=== PATIENT | female | born 1945 | race Caucasian/White ===

== ENCOUNTER 2019-09-07 07:35 | Outpatient (CLI) | payer MEDICARE, OTHER, SELFPAY ==
--- NOTE | 2019-09-07 08:00 | USCV_ITS ---
MejiasYulia Age: 73 Gender: F : 1945 Exam Date: 09/07/2019 07:58 Ordering Phys: Jackelin Stallings Technologist: Aga Hassan Exam Location[place] [facility] [place] Indication: HEART FAILURE BP: 150 / 70 HR: 65 Rhythm: Sinus Technical Quality: Good MEASUREMENTS (Male / Female) Normal Values 2D ECHO LV Diastolic Diameter PLAX 5.1 cm 4.2 - 5.9 / 3.9 - 5.3 cm LV Systolic Diameter PLAX 3.3 cm LV Chamber Size 4.7 cm IVS Diastolic Thickness 1.1 cm 0.6 - 1.0 / 0.6 - 0.9 cm IVS Systolic Thickness 1.2 cm LVPW Diastolic Thickness 0.5 cm 0.6 - 1.0 / 0.6 - 0.9 cm LVPW Systolic Thickness 1.1 cm RV Chamber Size 3.0 cm LVOT Diameter 2.0 cm LV Ejection Fraction 2D Teich 64.5 % LV Ejection Fraction MOD 2C 29.1 % LV Ejection Fraction 2C AL 27.3 % LA Diameter 3.6 cm LA Width 4.0 cm LA Height 4.6 cm RA Width 3.1 cm RA Height 4.8 cm M-MODE LV Diastolic Diameter MM 5.8 cm 4.2 - 5.9 / 3.9 - 5.3 cm LV Systolic Diameter MM 4.1 cm LV Ejection Fraction MM Teich 55.1 % IVS Diastolic Thickness MM 0.8 cm 0.6 - 1.0 / 0.6 - 0.9 cm IVS Systolic Thickness MM 1.3 cm LVPW Diastolic Thickness MM 1.3 cm 0.6 - 1.0 / 0.6 - 0.9 cm LVPW Systolic Thickness MM 1.4 cm Aortic Annulus Diameter 3.2 cm LA Ao Ratio MM 1.1 MV E Point Septal Separation 1.0 cm DOPPLER AV Peak Velocity 126.0 cm/s LVOT Peak Velocity 109.0 cm/s AV Area Cont Eq vti 2.4 cm squared AV Area Cont Eq pk 2.7 cm squared MV Area PHT 2.5 cm squared Mitral E to A Ratio 1.0 MV E' Velocity 6.0 cm/s Mitral E to MV E' Ratio 11.8 Mitral E to LV E' Lateral Ratio 13.8 Mitral E to LV E' Septal Ratio 10.3 TR Peak Velocity 311.9 cm/s TR Peak Gradient 38.9 mmHg TR Mean Velocity 221.9 cm/s TR Mean Gradient 22.5 mmHg TR Velocity Time Integral 109.1 cm TV Peak E Velocity 64.0 cm/s Right Atrial Pressure 3.0 mmHg Pulmonary Artery Systolic Pressu 41.9 mmHg PV Peak Velocity 53.0 cm/s FINDINGS Left Ventricle Normal left ventricular cavity size. Normal left ventricular wall thickness. Mildly decreased left ventricular systolic function. Regional wall motion abnormalities (see diagram). Grade I/IV diastolic dysfunction (abnormal relaxation filling pattern), normal to mildly elevated filling pressures. Left ventricular ejection fraction is estimated at 45-50 %. There appears to be distal anteroapical and apical hypokinesis to a very mild degree. Right Ventricle Normal right ventricular size and systolic function. Mild pulmonary hypertension, RVSP 41.9 mmHg. Right Atrium The right atrium is normal in size. Left Atrium Mildly increased left atrial size. Mitral Valve Structurally normal mitral valve. Trace mitral valve regurgitation. Aortic Valve Structurally normal trileaflet aortic valve. No aortic valve stenosis. Mild aortic valve regurgitation. Tricuspid Valve Structurally normal tricuspid valve. Moderate tricuspid valve regurgitation. Pulmonic Valve Pulmonic valve not well visualized. Pericardium Normal pericardium without effusion. Aorta Normal ascending aorta dimension. CONCLUSIONS Normal left ventricular cavity size. Normal left ventricular wall thickness. Mildly decreased left ventricular systolic function. Regional wall motion abnormalities (see diagram). Grade I/IV diastolic dysfunction (abnormal relaxation filling pattern), normal to mildly elevated filling pressures. Left ventricular ejection fraction is estimated at 45-50 %. There appears to be distal anteroapical and apical hypokinesis to a very mild degree. Normal right ventricular size and systolic function. Mild pulmonary hypertension, RVSP 41.9 mmHg. Mildly increased left atrial size. Structurally normal mitral valve. Trace mitral valve regurgitation. Structurally normal trileaflet aortic valve. No aortic valve stenosis. Mild aortic valve regurgitation. Previous study done only 3 months ago. There has been no change. Dr. Cristóbal Pillai MD (Electronically Signed) Final Date: 07 September 2019 17:16 S
== END 2019-09-07 07:36 | disposition home or self-care (01) ==
LOC: RAD 07:37
PROVIDERS: Family Provider Family Medicine; PCP Family Medicine; Visit Provider Nurse Practitioner Family
DX: I50.1 Left ventricular failure, unspecified (principal); I27.20 Pulmonary hypertension, unspecified; I08.1 Rheumatic disorders of both mitral and tricuspid valves
CPT/HCPCS: 93306

== ENCOUNTER 2020-04-20 09:26 | Emergency (ER) | payer MEDICARE, OTHER, SELFPAY ==
[2020-04-20] VITALS (8 sets, daily range): BP systolic 117–166; BP diastolic 55–80; PULSE 47–61; RESP 15–22; TEMP 36.6; O2SAT 94–100; BMI 22.7
--- NOTE | 2020-04-20 09:53 | XR_ITS ---
WS: [id number] Portable AP upright chest, 04/20/2020 Clinical Data: chest pain Comparison: PA and lateral chest, 08/15/2019. Findings: No nodules, masses or effusions are seen. The heart is normal. The pulmonary vascularity is not increased. No pneumonia or pneumothorax is seen. The aortic arch and descending aorta show calci fication and tortuosity. Monitor leads are on the chest wall. XR/XR chest 1V portable [id number] Impression: Atherosclerosis.
--- NOTE | 2020-04-20 09:53 | ECG_ITS ---
[facility] Test Date: 2020-04-20 Pat Name: Yulia Mejias Department: Room: Gender: Female Tie Sawyer: : 1945 Requested By: Carson Shay Order Number: [id number] Denise MD: Rebekah Dee M.D. Measurements Intervals [place] Rate: 48 P: 34 TX: 155 QRS: -2 QRSD: 88 T: 75 QT: 432 QTc: 389 Interpretive Statements SINUS BRADYCARDIA POSSIBLE LEFT ATRIAL ENLARGEMENT [-0.1mV P WAVE IN V1/V2] LOW QRS VOLTAGE IN PRECORDIAL LEADS [QRS DEFLECTION < 1.0 mV IN CHEST LEADS] SEPTAL MYOCARDIAL INFARCTION , OF INDETERMINATE AGE [40+ ms Q WAVE IN V1/V2] Compared to ECG 05/28/2019 06:09:16 No significant changes Electronically Signed On 04-20-2020 21:13:54 CDT by Rebekah Dee M.D. [id number] f
[2020-04-20 10:03] LABS: Basophils % 0.9 %; Eosinophils # 0.2 10^3/uL (0.0-0.8); Eosinophils % 3.5 %; Hematocrit 42.3 % (37.0-47.0); Hemoglobin 13.4 g/dL (11.5-15.3); Lymphocytes # 1.5 10^3/uL (0.8-4.8); Lymphocytes % 33.6 %; Mean Corpuscular HGB Conc 31.7 g/dL (30.0-36.0); Mean Corpuscular Hemoglobin 28.3 pg (28.0-34.0); Mean Corpuscular Volume 89.4 fL (81-99); Mean Platelet Volume 11.9 fL (7.4-10.4); Monocytes # 0.3 10^3/uL (0.2-0.9); Monocytes % 7.1 %; Neutrophils # 2.47 10^3/uL (1.8-7.7); Neutrophils % 54.7 %; Nucleated Red Blood Cells % 0 %; Platelet Count 162 10^3/cmm (130-400); Red Blood Count 4.73 10^6/uL (4.1-5.3); White Blood Count 4.5 10^3/uL (4.0-10.0)
--- NOTE | 2020-04-20 10:11 | PC.NURSE ---
XR performed at bedside
--- NOTE | 2020-04-20 10:14 | PC.NURSE ---
Pt and son updated on wait for blood work results.
--- NOTE | 2020-04-20 10:17 | ED_ITS ---
HPI - Chest Pain General: Chief Complaint: Chest Pain Stated Complaint: CHEST DISCOMFORT Time Seen by Provider: 04/20/20 09:30 History of Present Illness: HPI narrative: 74-year-old female comes in complaining of shoulder and neck pain for the last several days. She has been doing some home improvement projects recently with some sanding refinishing at home and she notices that in her right shoulder and neck she is having discomfort. She denied having any dyspnea or diaphoresis associated with it it is worse after eating is not clearly associated with exertional activities but she has noticed that when she gets that if she lays and rest that it does seem to get better. She has a known history of coronary disease and had a episode of angina last year in May she ultimately went to [facility] and was stented. She denies stress test since then. Reviewing the previous cath note she had an LAD and RCA lesion of which were stented MD complaint: chest pain Pertinent past history: coronary artery disease, prior [place] and [employer] Onset (ago): day(s) (2) Timing of current episode: episodic Prior episodes: Yes Onset: during rest, during exertion and after eating Pain location: right chest Pain radiation: neck and right shoulder Severity: mild Quality: aching and similar to prior [place] Relieving factors: rest Exacerbating factors: exertion (Not a consistent association) and eating Context: other (Increase physical activity at home refinishing and standing.) Associated symptoms: Deny abdominal pain, diaphoresis, dyspnea, fever(s), leg edema, nausea, palpitations, sense of impending doom, syncope or vomiting Treatment prior to arrival: none Review of Systems Const: Denies: fever(s) or diaphoresis ENMT: Denies: throat pain, ear or mastoid pain, nasal discharge or nasal congestion Card: Denies: palpitations or syncope Resp: Denies: dyspnea GI: Denies: abdominal pain, nausea or vomiting : Denies: flank pain, difficulty voiding, dysuria, urinary frequency or urinary urgency Skin/Breast: Denies: rash or pruritus PFSH ED PFSH: Medical History CAD (coronary artery disease) GERD (gastroesophageal reflux disease) Hyperlipidemia Osteoarthritis Systolic heart failure Surgical History History of hysterectomy S/P PTCA (percutaneous transluminal coronary angioplasty) Family History Father Stroke Brother Myocardial infarction Social History Smoking and tobacco status: never smoked Alcohol intake: never Household members: spouse Marital status: History of recent travel: No Physical Exam Const: COMMON NORMALS: no acute distress GENERAL APPEARANCE: cooperative and comfortable ORIENTATION/CONSCIOUSNESS: Yes awake, Yes oriented to person, Yes oriented to place and Yes oriented to time HENMT: COMMON NORMALS: normocephalic, atraumatic and hearing grossly normal bilaterally HEAD & SCALP: normocephalic and atraumatic Eye: COMMON NORMALS: Equal, round and reactive pupils present, EOMs intact bilaterally, conjunctivae normal and no scleral icterus CONJUNCTIVA: Yes conjunctivae normal PUPIL: Yes Equal, round and reactive pupils present Neck/C-Spine: COMMON NORMALS: full ROM, no lymphadenopathy, supple and no JVD Lymph: LYMPHATIC: no lymphadenopathy noted and no lymphedema noted Resp: COMMON NORMALS: normal respiratory effort, No retractions, No use of accessory muscles and clear to auscultation bilaterally AUSCULTATION: clear to auscultation bilaterally Cardio: COMMON NORMALS: no JVD, regular rate, regular rhythm and No murmurs present (Cardio) RATE: regular rate RHYTHM: regular rhythm GI: COMMON NORMALS: Soft to palpation and No hepatosplenomegaly present AUSCULTATION: Yes normoactive bowel sounds PALPATION: Yes Soft to palpation, No Tenderness to palpation present (GI), No Guarding due to palpation present (GI) and Yes No hepatosplenomegaly present Extremity: COMMON NORMALS: normal to inspection, capillary refill normal, no clubbing, cyanosis or edema, no calf tenderness and no pedal edema Neuro: SENSORIUM/ORIENTATION: Yes oriented to person, Yes oriented to place and Yes oriented to time Skin: COMMON NORMALS: no rashes or lesions noted GENERAL SKIN EXAM: no rashes or lesions noted Course Vital Signs: Vital signs: Vital Signs Temperature 97.8 F 04/20/20 09:44 Pulse Rate 56 L 04/20/20 13:00 Respiratory Rate 15 04/20/20 13:00 Blood Pressure 117/56 04/20/20 13:00 Pulse Oximetry 95 04/20/20 13:00 MDM - Chest Pain MDM Narrative: Medical decision making narrative: We will go ahead and discharge the patient home troponins are negative. Have discussed with Dr. Barrientos. He recommends adding isosorbide mononitrate continuing the clopidogrel and aspirin follow-up with him early next week if is any worsening or changes symptoms return immediately. Lab Data: Labs: Lab Results 04/20/20 04/20/20 04/20/20 Range/Units 09:48 09:48 09:48 WBC 4.5 (4.0-10.0) 10^3/ uL RBC 4.73 (4.1-5.3) 10^6/u L Hgb 13.4 (11.5-15.3) g/dL Hct 42.3 (37.0-47.0) % MCV 89.4 (81-99) fL MCH 28.3 (28.0-34.0) pg MCHC 31.7 (30.0-36.0) g/dL RDW 13.0 (12.1-15.1) % Plt Count 162 (130-400) 10^3/c mm MPV 11.9 H (7.4-10.4) fL Neut % (Auto) 54.7 % Lymph % (Auto) 33.6 % [place] % (Auto) 7.1 % Eos % (Auto) 3.5 % Baso % (Auto) 0.9 % Neut # (Auto) 2.47 (1.8-7.7) 10^3/u L Lymph # (Auto) 1.5 (0.8-4.8) 10^3/u L [place] # (Auto) 0.3 (0.2-0.9) 10^3/u L Eos # (Auto) 0.2 (0.0-0.8) 10^3/u L Baso # (Auto) 0.0 (0.0-0.1) 10^3/u L Nucleated RBC % (a uto) 0 % Nucleated RBCs # 0.0 /100WBC Sodium 141 (136-145) mmol/L Potassium 4.4 (3.5-5.1) mmol/L Chloride 105 (98-107) mmol/L Carbon Dioxide 28 (22-29) mmol/L Anion Gap 12.4 (5-19) BUN 9 (8-23) mg/dL Creatinine 0.9 (0.5-0.9) mg/dL GFR Calculation Not Reportable Glucose 110 (65-115) mg/dL Calculated Osmolal ity 289 (285-295) mOsm/k g Calcium 9.9 (8.5-10.5) mg/dL Total Bilirubin 0.5 (0.15-1.2) mg/dL AST 22 (0-32) U/L ALT 18 (0-33) U/L Alkaline Phosphata se 73 (35-105) IU/L Troponin T Baselin e 11 H (0-10) ng/L Troponin T 120 Min [place] (0-10) ng/L Delta Troponin T (0-10) ABS# Total Protein 7.2 (6.6-8.7) g/dL Albumin 4.8 (3.5-5.2) g/dL Globulin 2.4 (1.3-4.6) g/dL 04/20/20 Range/Units 11:53 WBC (4.0-10.0) 10^3/ uL RBC (4.1-5.3) 10^6/u L Hgb (11.5-15.3) g/dL Hct (37.0-47.0) % MCV (81-99) fL MCH (28.0-34.0) pg MCHC (30.0-36.0) g/dL RDW (12.1-15.1) % Plt Count (130-400) 10^3/c mm MPV (7.4-10.4) fL Neut % (Auto) % Lymph % (Auto) % [place] % (Auto) % Eos % (Auto) % Baso % (Auto) % Neut # (Auto) (1.8-7.7) 10^3/u L Lymph # (Auto) (0.8-4.8) 10^3/u L [place] # (Auto) (0.2-0.9) 10^3/u L Eos # (Auto) (0.0-0.8) 10^3/u L Baso # (Auto) (0.0-0.1) 10^3/u L Nucleated RBC % (a uto) % Nucleated RBCs # /100WBC Sodium (136-145) mmol/L Potassium (3.5-5.1) mmol/L Chloride (98-107) mmol/L Carbon Dioxide (22-29) mmol/L Anion Gap (5-19) BUN (8-23) mg/dL Creatinine (0.5-0.9) mg/dL GFR Calculation Glucose (65-115) mg/dL Calculated Osmolal ity (285-295) mOsm/k g Calcium (8.5-10.5) mg/dL Total Bilirubin (0.15-1.2) mg/dL AST (0-32) U/L ALT (0-33) U/L Alkaline Phosphata se (35-105) IU/L Troponin T Baselin e (0-10) ng/L Troponin T 120 Min [place] 9.44 (0-10) ng/L Delta Troponin T -1.56 L (0-10) ABS# Total Protein (6.6-8.7) g/dL Albumin (3.5-5.2) g/dL Globulin (1.3-4.6) g/dL Discharge Plan Discharge Patient Disposition: Home Clinical Impression: Atypical chest pain Condition: Stable Prescriptions: New isosorbide mononitrate 30 mg tablet extended release 24 hr 30 mg PO DAILY Qty: 30 RF: 0 No Action clopidogrel 75 mg tablet 75 mg PO DAILY RF: 0 aspirin [Adult Low Dose Aspirin] 81 mg tablet,delayed release (DR/EC) 81 mg PO DAILY RF: 0 fexofenadine [Consuelo Allergy] 180 mg tablet 180 mg PO Q24H Qty: 30 RF: 2 pantoprazole 40 mg Tablet,Delayed Release (Dr/Ec) 40 mg PO DAILY RF: 0 Crestor 20 mg Tablet 20 mg PO DAILY RF: 0 metoprolol succinate 25 mg tablet extended release 24 hr 25 mg PO DAILY RF: 0 Discharge Orders: Discharge Order (Routine); Ordered 04/20/20 Ordered By: Carson Sanchez Referrals: Yisel Terry MD [Primary Care Provider] - Discharge Diet: Usual diet Discharge Activity: Limit activity as instructed Activity Restrictions/Additional Instructions: Start Imdur once daily. Continue Plavix daily. If you have recurrent chest pain return. Please call Dr. Barrientos's office on Thursday. junior assistant manager will call to set up a Lexiscan sestamibi stress test. Discharge Date/Time: 04/20/20 13:27 Coding Level of Care Code ED Natural Resource Officer for Elza Fwd Exam Comprehensive
[2020-04-20 10:21] LABS: Alanine Aminotransferase 18 U/L (0-33); Albumin Level 4.8 g/dL (3.5-5.2); Alkaline Phosphatase 73 IU/L (35-105); Anion Gap 12.4 (5-19); Aspartate Amino Transferase 22 U/L (0-32); Blood Urea Nitrogen 9 mg/dL (8-23); Calcium 9.9 mg/dL (8.5-10.5); Carbon Dioxide 28 mmol/L (22-29); Chloride 105 mmol/L (98-107); Globulin 2.4 g/dL (1.3-4.6); Glucose 110 mg/dL (65-115); Osmolality Calculated 289 mOsm/kg (285-295); Potassium 4.4 mmol/L (3.5-5.1); Sodium 141 mmol/L (136-145); Total Bilirubin 0.5 mg/dL (0.15-1.2); Total Protein 7.2 g/dL (6.6-8.7); Troponin(5th) Baseline 11 ng/L (0-10)
--- NOTE | 2020-04-20 11:05 | PC.NURSE ---
REPORT RECEIVED FROM ANASTAC[facility].
--- NOTE | 2020-04-20 11:06 | PC.NURSE ---
Report given to WALESKA Sanchez. Pt has c/o pain to right shoulder at 6/10, physician notified. Pt has no other c/o. Call light in reach.
[2020-04-20] MEDS: nitroglycerin 1 gm/inch oint Pkt 1 INCH TOPICAL (11:51)
--- NOTE | 2020-04-20 11:53 | ECG_ITS ---
[facility] Test Date: 2020-04-20 Pat Name: Yulia Mejias Department: Room: Gender: Female Grounds Manager: : 1945 Requested By: Carson Shay Order Number: [id number] Denise MD: Rebekah Dee M.D. Measurements Intervals [place] Rate: 43 P: 28 GA: 151 QRS: -8 QRSD: 82 T: 84 QT: 436 QTc: 372 Interpretive Statements SINUS BRADYCARDIA LOW QRS VOLTAGE IN PRECORDIAL LEADS [QRS DEFLECTION < 1.0 mV IN CHEST LEADS] SEPTAL MYOCARDIAL INFARCTION , OF INDETERMINATE AGE [40+ ms Q WAVE IN V1/V2] Compared to ECG 04/20/2020 09:46:29 No significant changes Electronically Signed On 04-20-2020 21:15:08 CDT by Rebekah Dee M.D. [id number]
[2020-04-20 12:17] LABS: Troponin 5 2HR 9.44 ng/L (0-10)
[2020-04-20 12:22] LABS: Troponin 5 2HR Delta -1.56 ABS# (0-10)
--- NOTE | 2020-04-26 15:18 | DCPLANNER ---
late entry - manager assisted living had message to schedule an out patient stress test for patient. manager assisted living faxed order to centralized scheduling, will call for appointment information.
--- NOTE | 2020-05-03 08:16 | DCPLANNER ---
Patient has a stress test scheduled for , May 17, 2020 at 1:00. Centralized scheduling will call patient with appointment information.
--- NOTE | 2020-06-08 17:48 | DCPLANNER ---
Patient had a stress test scheduled for 05.17.20 - appointment was cancelled
== END 2020-04-20 13:27 | disposition home or self-care (01) ==
PROVIDERS: Emergency Provider Family Medicine; PCP Family Medicine
DX: R07.89 Other chest pain (principal); Z79.02 Long term (current) use of antithrombotics/antiplatelets; Z79.82 Long term (current) use of aspirin; I25.10 Atherosclerotic heart disease of native coronary artery without angina pectoris; E78.5 Hyperlipidemia, unspecified; I50.20 Unspecified systolic (congestive) heart failure
CPT/HCPCS: 12345; 71045; 80053; 84484; 85025; 93005; 99283; 99284

== ENCOUNTER → 2020-09-13 10:34 | Outpatient (BNVA) | payer MEDICARE, OTHER, SELFPAY | PROVIDERS: PCP Family Medicine; Visit Provider Nurse Practitioner | DX: N39.0 Urinary tract infection, site not specified (principal) | CPT/HCPCS: 81000; 87086 ==

== ENCOUNTER → 2020-09-17 11:03 | Outpatient (BNVA) | payer MEDICARE, OTHER, SELFPAY | PROVIDERS: PCP Family Medicine; Visit Provider Nurse Practitioner Family | DX: Z20.828 Contact with and (suspected) exposure to other viral communicable diseases (principal) | CPT/HCPCS: 87426 ==

== ENCOUNTER → 2021-08-26 13:20 | Outpatient (BNVA) | payer MEDICARE, OTHER, SELFPAY | PROVIDERS: PCP Family Medicine; Visit Provider Nurse Practitioner Family | DX: I50.22 Chronic systolic (congestive) heart failure (principal); K21.9 Gastro-esophageal reflux disease without esophagitis; M19.90 Unspecified osteoarthritis, unspecified site; E78.00 Pure hypercholesterolemia, unspecified; I25.10 Atherosclerotic heart disease of native coronary artery without angina pectoris; J06.9 Acute upper respiratory infection, unspecified; Z13.820 Encounter for screening for osteoporosis; Z12.31 Encounter for screening mammogram for malignant neoplasm of breast; K13.70 Unspecified lesions of oral mucosa; Z78.0 Asymptomatic menopausal state; E55.9 Vitamin D deficiency, unspecified | CPT/HCPCS: 80053; 80061; 82306; 84443 ==

== ENCOUNTER 2021-11-25 07:55 | Outpatient (CLI) | payer MEDICARE, OTHER, SELFPAY ==
--- NOTE | 2021-11-25 08:12 | MM_ITS ---
WS: [id number] BILATERAL SCREENING 3D TOMOSYNTHESIS DIGITAL MAMMOGRAM WITH CAD HISTORY: SCREENING COMPARISON: None available. Bilateral CC and MLO views submitted. Computer aided detection analyzed. Breast composition: There are scattered areas of fibroglandular density. No suspicious masses, microc alcifications or architectural distortion. Benign calcifications in the central LEFT breast. MM/[place] [id number] IMPRESSION: BI-RADS: 2-Benign FOLLOW UP: 1 Year Follow-up
--- NOTE | 2021-11-25 09:00 | XR_ITS ---
WS: [id number] DEXA (DUAL ENERGY X-RAY ABSORPTIOMETRY) Bone mineral density was performed using a Personal Style Finder machine. HISTORY: Screening COMPARISON: None available. Lumbar spine BMD (L1-L4): 0.976 g/cm2 T score: -1.7 Z score: -0.1 Total hip BMD: Left: 0.787 g/cm2. T score: -1.8 Z score: -0.2 Right: 0.760 g/cm2. T score: -2.0 Z score: -0.4 10 year probability of a major osteoporotic fracture is 26%. XR/XR DEXA axial skeleton* [id number] IMPRESSION: OSTEOPENIA based upon the WHO classification for females.
== END 2021-11-25 07:56 | disposition home or self-care (01) ==
LOC: RAD 07:57
PROVIDERS: PCP Family Medicine; Visit Provider Nurse Practitioner Family
DX: Z12.31 Encounter for screening mammogram for malignant neoplasm of breast (principal); Z13.820 Encounter for screening for osteoporosis; Z78.0 Asymptomatic menopausal state; M85.80 Other specified disorders of bone density and structure, unspecified site
CPT/HCPCS: 77063; 77067; 77080

== ENCOUNTER → 2022-09-09 10:28 | Outpatient (BNVA) | payer MEDICARE, OTHER, SELFPAY | PROVIDERS: PCP Family Medicine; Visit Provider Internal Medicine Cardiovascular Disease | DX: I25.10 Atherosclerotic heart disease of native coronary artery without angina pectoris (principal); I50.22 Chronic systolic (congestive) heart failure; E78.00 Pure hypercholesterolemia, unspecified; K21.9 Gastro-esophageal reflux disease without esophagitis | CPT/HCPCS: 99214; Q3014 ==

== ENCOUNTER → 2023-06-04 15:46 | Outpatient (BNVA) | payer MEDICARE, OTHER, SELFPAY | PROVIDERS: PCP Family Medicine; Visit Provider Internal Medicine Cardiovascular Disease | DX: R00.1 Bradycardia, unspecified (principal); I25.10 Atherosclerotic heart disease of native coronary artery without angina pectoris; E78.5 Hyperlipidemia, unspecified; E78.00 Pure hypercholesterolemia, unspecified; I50.22 Chronic systolic (congestive) heart failure; K21.9 Gastro-esophageal reflux disease without esophagitis | CPT/HCPCS: 36415; 80053; 80061; 85025; 93005; 99214 ==

== ENCOUNTER 2023-08-12 18:05 | Emergency (ER) | payer MEDICARE, OTHER, SELFPAY ==
[2023-08-12 18:16] VITALS: BP 175/90; PULSE 94; RESP 15; TEMP 37.1; O2SAT 98; BMI 24.0
[2023-08-12] MEDS: HYDROmorphone 1 mg/mL INJ 1 mL 0.5 MG IM (19:47)
[2023-08-12] MEDS: tetracaine 0.5% Op Soln 4 mL Btl 1 DROP EYE-LEFT (19:48)
[2023-08-12] MEDS: fluorescein 1 mg Strip EYE-LEFT (19:49)
--- NOTE | 2023-08-12 20:04 | ED_ITS ---
HPI - General Adult General: Chief complaint: General Medical Stated complaint: pain related to shingles Time Seen by Provider: 08/12/23 18:37 PFSH ED PFSH: Medical History Sinusitis, acute Sinus congestion Eustachian tube dysfunction Otitis media History of 2019 novel coronavirus disease (COVID-19) Aug 2020 COVID Systolic heart failure GERD (gastroesophageal reflux disease) Osteoarthritis CAD (coronary artery disease) Hyperlipidemia Surgical History S/P PTCA (percutaneous transluminal coronary angioplasty) History of hysterectomy Family History Father Stroke Brother Myocardial infarction Social History Alcohol intake: never Substance/Drug Use: never Household members: spouse Marital status: Course Vital Signs: Vital signs: Vital Signs Temperature 98.7 F 08/12/23 18:16 Pulse Rate 94 08/12/23 18:16 Respiratory Rate 15 08/12/23 18:16 Blood Pressure 175/90 08/12/23 18:16 Pulse Oximetry 98 08/12/23 18:16 Oxygen Delivery Me thod Room Air 08/12/23 18:16 Discharge Plan Discharge Condition: Stable Prescriptions: No Action aspirin [Adult Low Dose Aspirin] 81 mg tablet,delayed release (DR/EC) 81 mg PO DAILY clopidogrel 75 mg tablet 75 mg PO DAILY Qty: 90 3RF pantoprazole 40 mg tablet,delayed release (DR/EC) 40 mg PO DAILY Qty: 90 3RF Crestor 20 mg tablet 20 mg PO DAILY Qty: 90 3RF amoxicillin-pot clavulanate 875-125 mg tablet 1 tab PO BID 7 Days Qty: 14 0RF valacyclovir 1 gram tablet 1,000 mg PO TID 7 Days Qty: 21 0RF losartan 50 mg tablet 75 mg PO DAILY Qty: 135 3RF metoprolol succinate 25 mg tablet extended release 24 hr 25 mg PO DAILY Qty: 90 3RF Referrals: Yisel Terry MD [Primary Care Provider] - Coding Level of Care Code ED Packer Inspector for Chg Cecy
--- NOTE | 2023-08-12 20:09 | ED_ITS ---
HPI - General Adult 2 General: Chief complaint: General Medical Stated complaint: pain related to shingles Time Seen by Provider: 08/12/23 18:37 History of Present Illness: 77-year-old female presents em ergency room with rash to the left side of her face and some eye pain in the past 24 hours. Patient was initially seen and evaluated at a local urgent care and was sent to emergency room for evaluation. Patient reveals having some rash on the left side of the face and described the pain around as sharp sensation with severity of 8 out of 10. She also complained of left eye pain especially on the left corner of eye. Also revealed some rash on the roof of her mouth. Denies any fever, chills, nausea or vomiting. Associated symptoms: Reports rash; Deny chest pain, confusion, diaphoresis, dyspnea, headache(s), malaise, nausea, palpitations, syncope or vomiting Review of Systems 2 General: Reports: 10 or more systems reviewed and unremarkable except in HPI and below Const: Denies: fever(s), chills, body aches, change in appetite, change in weight, fatigue, malaise, night sweats, diaphoresis, change in sleep pattern, daytime sleepiness or snoring Eyes: Reports: eye discomfort and eye redness; Denies: change in vision, blind spots or eye discharge ENMT: Reports: mouth pain; Denies: throat pain, odynophagia, hoarseness, dental pain or dry mouth Card: Denies: chest pain, palpitations, irregular heart rhythm, edema, swelling of feet/ankles, lightheadedness, syncope, pre-syncope or dyspnea on exertion Resp: Denies: dyspnea, productive cough or non-productive cough GI: Denies: abdominal pain, nausea, vomiting or hematemesis : Denies: flank pain, difficulty voiding, dysuria, urinary frequency, urinary urgency or urinary hesitancy Skin/Breast: Reports: rash, erythema, skin tenderness and new lesions; Denies: skin swelling, sores, changing lesions, lesions, changes in skin color or jaundice Neuro: Denies: headache(s), numbness in extremities, weakness in extremities, sensory changes, lack of coordination, difficulty walking, frequent falls, dizziness, vertigo, confusion, behavioral changes or Slurred speech present Psych: Denies: anxiety, depression, mood swings, panic attacks, sleeping less, sleeping more, hopelessness, loss of interest, change in appetite, irritability or paranoia Endo: Denies: polyuria, polydipsia, tired all the time, cold intolerance, excessive sweating or flushing PFSH ED 2 PFSH: Medical History Sinusitis, acute Sinus congestion Eustachian tube dysfunction Otitis media History of 2019 novel coronavirus disease (COVID-19) Aug 2020 COVID Systolic heart failure GERD (gastroesophageal reflux disease) Osteoarthritis CAD (coronary artery disease) Hyperlipidemia Surgical History S/P PTCA (percutaneous transluminal coronary angioplasty) History of hysterectomy Family History Father Stroke Brother Myocardial infarction Social History Alcohol intake: never Substance/Drug Use: never Household members: spouse Marital status: Physical Exam 2 Const: COMMON NORMALS: no acute distress, average body habitus, patient oriented x3, no limitations, healthy appearing, alert and well nourished HENMT: COMMON NORMALS: Normal external nose present HEAD IMAGES: 1. Area with diffuse rashes with some erythema basis. No vesicle NOSE: Normal external nose present MOUTH: other (The roof of the mouth with some lesion consistent with viral lesion) Eye: COMMON NORMALS: Equal, round and reactive pupils present EYELID: e yelids normal CONJUNCTIVA: Yes conjunctival abnormal (Left eye with dye uptake) positive left SCLERA: sclerae normal CORNEA: Yes corneas normal and fluorescein used PUPIL: Yes Equal, round and reactive pupils present and Yes Pupil accommodation reflex normal Neck/C-Spine: COMMON NORMALS: full ROM, no lymphadenopathy, supple, no meningeal signs, no JVD, Thyroid normal and No carotid bruits THYROID: T hyroid normal Chest: COMMONS NORMALS: normal inspection of the chest, normal palpation of entire chest wall, normal inspection of the breasts and normal palpation of the breasts Breast/axilla inspection: Yes normal inspection of the breasts B REAST/AXILLA PALPATION: Yes normal palpation of the breasts Resp: COMMON NORMALS: normal respiratory effort, No retractions, No use of accessory muscles, clear to auscultation bilaterally and percussion normal A USCULTATION: clear to auscultation bilaterally PERCUSSION: percussion normal Cardio: COMMON NORMALS: no JVD GI: COMMON NORMALS: Normal to inspection, nondistended, normoactive bowel sounds present, Soft to palpation, non-tender, No hepatosplenomegaly present, no masses and no bruits PALPATION: Yes Soft to palpation and Yes No hepatosplenomegaly present Neuro: COMMON NORMALS: patient oriented x3 SENSORIUM/ORIENTATION: Yes alert MENINGEAL SIGNS: Yes no meningeal signs Course 2 Vital Signs: Vital signs: Vital Signs Temperature 98.7 F 08/12/23 20:30 Pulse Rate 94 08/12/23 20:30 Respiratory Rate 15 08/12/23 20:30 Blood Pressure 175/90 08/12/23 20:30 Pulse Oximetry 98 08/12/23 20:30 Oxygen Delivery Me thod Room Air 08/12/23 18:16 MDM - General Adult Medical Decision Making Patient was made comfortable emergency room. Patient was given IM pain medication. Patient underwent thorough examination including fluorescein dye stain. Patient was discussed with family and Dr. Macdonald the ophthalmology. Dr. Macdoanld agree with current treatment and recommend outpatient follow-up Family reviewed that patient is on eye doctor and will call the eye doctor in the morning for further evaluation and treatment. Differential Diagnosis Shingles, rash, corneal abrasion, foreign body in the eye viral syndrome cellulitis, abscess, folliculitis XR interpretation done by ED provider, pending radiology final review Discharge Plan Discharge Patient Disposition: Home Clinical Impression: Acute pain associated with herpes zoster, Ophthalmic herpes simplex Condition: Stable Prescriptions: New Percocet 5-325 mg tablet 1 tab PO TID PRN (Reason: pain) Qty: 14 0RF erythromycin 5 mg/gram (0.5 %) ointment 1 applic ophthalmic (eye) TID Qty: 50 0RF No Action aspirin [Adult Low Dose Aspirin] 81 mg tablet,delayed release (DR/EC) 81 mg PO DAILY clopidogrel 75 mg tablet 75 mg PO DAILY Qty: 90 3RF pantoprazole 40 mg tablet,delayed release (DR/EC) 40 mg PO DAILY Qty: 90 3RF Crestor 20 mg tablet 20 mg PO DAILY Qty: 90 3RF amoxicillin-pot clavulanate 875-125 mg tablet 1 tab PO BID 7 Days Qty: 14 0RF valacyclovir 1 gram tablet 1,000 mg PO TID 7 Days Qty: 21 0RF losartan 50 mg tablet 75 mg PO DAILY Qty: 135 3RF metoprolol succinate 25 mg tablet extended release 24 hr 25 mg PO DAILY Qty: 90 3RF Discharge Orders: Discharge ED (Routine); Ordered 08/12/23 Ordered By: Mary Lubin Referrals: Yisel Terry MD [Primary Care Provider] - Discharge Diet: Advance as tolerated Discharge Activity: Resume usual activity Patient Instructions: Opioid Safety, Pain Management Activity Restrictions/Additional Instructions: Please call your eye doctor tomorrow for same-day appointment for further evaluation of your eyes. Take all medication including the antiviral medication as prescribed. Return to emergency room if symptoms persist or worsen. Coding Level of Care Code ED Weld Technician for Elza Sam
[2023-08-12] MEDS: erythromycin Op Oint 1 gm 1 APPLIC EYE-LEFT (20:28)
[2023-08-12 20:30] VITALS: BP 175/90; PULSE 94; RESP 15; TEMP 37.1; O2SAT 98
== END 2023-08-12 20:32 | disposition home or self-care (01) ==
PROVIDERS: Emergency Provider Family Medicine; PCP Family Medicine
DX: B02.9 Zoster without complications (principal); B00.50 Herpesviral ocular disease, unspecified; Z79.02 Long term (current) use of antithrombotics/antiplatelets; Z79.82 Long term (current) use of aspirin; I50.9 Heart failure, unspecified; I25.10 Atherosclerotic heart disease of native coronary artery without angina pectoris; E78.5 Hyperlipidemia, unspecified
CPT/HCPCS: 96372; 99284; J1170

== ENCOUNTER → 2023-12-10 10:29 | Outpatient (BNVA) | payer MEDICARE, OTHER, SELFPAY | PROVIDERS: PCP Family Medicine; Visit Provider Nurse Practitioner Family | DX: I25.10 Atherosclerotic heart disease of native coronary artery without angina pectoris (principal); I50.22 Chronic systolic (congestive) heart failure | CPT/HCPCS: 99214 ==

== ENCOUNTER → 2024-06-16 15:15 | Outpatient (BNVA) | payer MEDICARE, OTHER, SELFPAY | PROVIDERS: PCP Family Medicine; Visit Provider Internal Medicine Cardiovascular Disease | DX: I25.10 Atherosclerotic heart disease of native coronary artery without angina pectoris (principal); R00.2 Palpitations; B02.31 Zoster conjunctivitis; I42.9 Cardiomyopathy, unspecified; R06.00 Dyspnea, unspecified | CPT/HCPCS: 99214 ==

== ENCOUNTER 2024-07-12 07:57 | Outpatient (CLI) | payer MEDICARE, OTHER, SELFPAY ==
--- NOTE | 2024-07-12 08:30 | USCV_ITS ---
Yulia Mejias Age: 78 Gender: F : 1945 Exam Date: 07/12/2024 08:19 Ordering Phys: Rebekah Dee MD ([email or web address]) Technologist: CT [place] [facility] [place]: BP: 114 / 66 HR: 50 Rhythm: Sinus Technical Quality: Adequate MEASUREMENTS (Male / Female) Normal Values 2D ECHO LVOT Diameter 2.0 cm LV Ejection Fraction MOD 4C 62.7 % LV Ejection Fraction MOD 2C 50.0 % LV Ejection Fraction 2C AL 51.6 % LA Diameter 3.5 cm RA Systolic Volume 4C AL 23.6 ml RA Systolic Volume 4C MOD 23.7 ml LA Sys Volume AL 35.0 cm cubed LA Sys Volume Index AL 19.5 cm cubed/m squared Aorta at Sinotubular Diameter 2.5 cm IVC Diameter 1.3 cm M-MODE LA Ao Ratio MM 1.5 AV Cusp Separation MM 1.9 cm DOPPLER AV Peak Velocity 143.0 cm/s LVOT Peak Velocity 105.0 cm/s AV Area Cont Eq vti 2.3 cm squared AV Area Cont Eq pk 2.4 cm squared MV Peak Velocity 88.0 cm/s MV Area PHT 2.9 cm squared Mitral E to A Ratio 0.8 TV Peak Velocity 274.5 cm/s TR Peak Velocity 292.5 cm/s TR Peak Gradient 34.2 mmHg TR Mean Velocity 213.0 cm/s TR Mean Gradient 20.3 mmHg TR Velocity Time Integral 90.8 cm TV Peak E Velocity 64.0 cm/s PV Peak Velocity 97.5 cm/s FINDINGS Left Ventricle Left ventricle is normal size. LV systolic function is normal with EF 50-55%. Mild hypokinesis of apical and distal anterolateral anand. Grade 1 diastolic dysfunction. Right Ventricle Normal in size and function Right Atrium Normal in size Left Atrium Normal in size Mitral Valve Structurally normal mitral valve. Trace mitral regurgitation Aortic Valve Structurally normal aortic valve. Mild to moderate aortic regurgitation. Tricuspid Valve Mild tricuspid regurgitation. RVSP is 35 to 40 mmHg. This is consistent with mild pulmonary hypertension. Pulmonic Valve Trace pulmonic regurgitation. Pericardium Normal Aorta Normal in size IVC Appears to be normal CONCLUSIONS LV systolic function is normal with EF of 50-55%. Grade 1 diastolic dysfunction. Trace mitral regurgitation. Mild to moderate aortic regurgitation Mild tricuspid regurgitation Mild pulmonary hypertension Trace pulmonic regurgitation. Compared to prior echocardiogram from 2019, LV systolic function appears to be improved. Brian Monterroso MD (Electronically Signed) Final Date: 21 July 2024 07:58 S
== END 2024-07-12 07:58 | disposition home or self-care (01) ==
LOC: RAD 07:58
PROVIDERS: Visit Provider Internal Medicine Cardiovascular Disease
DX: I50.30 Unspecified diastolic (congestive) heart failure (principal); I35.1 Nonrheumatic aortic (valve) insufficiency; I42.9 Cardiomyopathy, unspecified; R06.00 Dyspnea, unspecified
CPT/HCPCS: 93306

== ENCOUNTER → 2024-08-04 11:11 | Outpatient (BNVA) | payer MEDICARE, OTHER, SELFPAY | PROVIDERS: PCP Nurse Practitioner Family; Visit Provider Nurse Practitioner Family | DX: E78.00 Pure hypercholesterolemia, unspecified (principal) | CPT/HCPCS: 80053 ==

== ENCOUNTER → 2024-12-13 10:41 | Outpatient (BNVA) | payer MEDICARE, OTHER, SELFPAY | PROVIDERS: PCP Nurse Practitioner Family; Visit Provider Internal Medicine Cardiovascular Disease | DX: I25.10 Atherosclerotic heart disease of native coronary artery without angina pectoris (principal); I11.0 Hypertensive heart disease with heart failure; I50.20 Unspecified systolic (congestive) heart failure | CPT/HCPCS: 99214 ==

== ENCOUNTER → 2025-07-12 13:50 | Outpatient (BNVA) | payer MEDICARE, OTHER, SELFPAY | PROVIDERS: PCP Nurse Practitioner Family; Visit Provider Nurse Practitioner Family | DX: I25.10 Atherosclerotic heart disease of native coronary artery without angina pectoris (principal); E78.5 Hyperlipidemia, unspecified | CPT/HCPCS: 99213 ==